=== PATIENT | female | born 1995 | race Caucasian/White ===

== ENCOUNTER 2017-01-22 17:32 | Emergency (ER) | payer BC ==
[2017-01-22] MEDS ORDERED: LIDOCAINE HCL 20 ML UDC PO ONE (18:01)
[2017-01-22] MEDS ORDERED: MAG HYDROX/ALUMINUM HYD/SIMETH 30 ML UDC PO ONE (18:01)
[2017-01-22] MEDS ORDERED: SUCRALFATE 1 G/10 ML UDC PO ONE (18:01)
[2017-01-22] MEDS ORDERED: ONDANSETRON 4 MG TAB.RAPDIS PO ONE (18:01)
[2017-01-22] MEDS ORDERED: NORMAL SALINE 1,000 ML IV ONE (18:01)
[2017-01-22] MEDS ORDERED: ONDANSETRON 4 MG TAB.RAPDIS ONE (18:08)
[2017-01-22 18:11] LABS: Hematocrit 42.1 % (37.0-47.0); Hemoglobin 13.6 gm/dL (12.5-16.0); Mean Cell Volume 83.9 fl (78-100); Mean Corpuscular Hemoglobin 27.1 pg (27-31); Mean Corpuscular Hgb Conc 32.3 g/dl (32-36); Neutrophil # 4.9 K/mm3 (1.3-6.0); Neutrophil % 59.1 % (42-75.0); Platelet Count 352 K/mm3 (150-450); Red Blood Count 5.02 M/mm3 (4.2-5.4); Red Cell Distribution Width 12.8 % (11.5-14.0); White Blood Count 8.3 K/mm3 (4.0-10.5)
--- NOTE | 2017-01-22 18:13 | ERNOTE ---
Medical Problem HPI - Narrative Date of Service: 01/22/17 - General Chief Complaint: Nausea/Vomiting Time Seen by Provider: 01/22/17 17:42 Source: patient Exam Limitations: no limitations - Immun/Allergies/Home Medications Immunizations: IMMUNIZATION HX Immunizations Up to Date Yes History of Influenza Vaccine No Hx Pneumococcal Vaccination No Allergies/Adverse Reactions: Allergies No Known Allergies Allergy (Unverified 01/22/17 17:43) Home Medications: HOME MEDICATIONS Ondansetron [Zofran Odt] 4 mg PO Q6H PRN #20 tab 01/22/17 [Last Taken Unknown] Ranitidine HCl [Zantac] 150 mg PO BID #60 tab 01/22/17 [Last Taken Unknown] Sertraline HCl DAILY 01/22/17 [Last Taken Unknown] metFORMIN HCL [Metformin HCl ER] 1,000 mg PO DAILY 01/22/17 [Last Taken Unknown] - History of Present History Narrative: Pt. comes in with c/o LUQ pain for four days that is accompanied by vomiting that occurs after she eats and is worsened by lying flat and states that she wakes up with a bad taste in her mouth. Pt. went to the [place] [facility] and was started on Zofran and was diagnosed with gastroenteritis and was sent to her PCP. Her PCP today referred her here as she was concerned that pt. may have biliary colic. Pt. states that her symptoms improved after she was in the ER and received a cocktail but states that the symptoms worsened again after the medication wore off. Review of Systems - Review of Systems Constitutional: Present: no symptoms reported. Absent: recent illness, fever, chills, weakness, fatigue, malaise EYE: Present: no symptoms reported ENT: Present: no symptoms reported Respiratory: Present: no symptoms reported. Absent: shortness of breath, cough , wheezing Cardiology: Present: no symptoms reported Gastrointestinal/Abdominal: Present: nausea, vomiting, abdominal pain - LUQ. Absent: diarrhea Genitourinary: Present: no symptoms reported Musculoskeletal: Present: no symptoms reported. Absent: back pain, joint pain Skin: Present: no symptoms reported Neurological: Present: no symptoms reported. Absent: headache, dizziness/light- headedness, numbness, tingling All Other Systems: All systems neg except as marked - Patient's Past Medical History Patient History - Medical: Diabetes Type 2, Other - gastroenteritis Patient History - Cardiac/Respiratory: No pertinent hx Patient History - Cancer: No Hx of Cancer Patient History - Surgical Procedures: T & A Patient History - Other: None LMP (females 10-50): this week - Social History Living Situations: home Psych History: No pertinent hx Smoking Status: Never smoker - Immunizations Immunizations Up to Date: Yes Hx Pneumococcal Vaccination: No History of Influenza Vaccine: No Physical Exam - Physical Exam General Appearance: Present: wd/wn, alert, no apparent distress Head Exam: Present: normal inspection, no evidence of injury Eye Exam: Normal inspection: bilateral, PERRL: bilateral, EOMI: bilateral Ears, Nose, Throat: Present: normal ENT inspection, normal pharynx Neck: Present: normal inspection, nontender. Absent: lymphadenopathy (R), lymphadenopathy (L) Respiratory: Present: no respiratory distress, normal breath sounds, no accessory muscle use, chest nontender, lungs clear Cardiovascular/Chest: Present: regular rate, rhythm, no murmur, normal peripheral pulses Gastrointestinal/Abdominal: Present: normal bowel sounds, nondistended, soft, no organomegaly, tenderness - LUQ Extremity Exam: Present: normal inspection, non-tender Neurological Exam: Present: alert, oriented, normal mood/affect, no motor/ sensory deficits Skin Exam: Present: normal color, warm/dry. Absent: pallor, skin rash ED Progress - Date and Time Seen: Date and Time: 01/22/17 18:50 Pt. significantly improved after medications and tolerating foods and fluids. Feel that pt. has gastritis will have pt start zantac daily. - Results and Orders Patient's Lab Results:: I have reviewed the patient's lab results. Results and Orders: Pt. with contaminated urine - Vital Signs Patient's Vital Signs:: I have reviewed the patient's vital signs. Vital Signs: Vital Signs 01/22/17 01/22/17 17:37 17:52 Temperature 36.6 C Pulse Rate 90 89 Respiratory 17 15 Rate Blood Pressure 134/73 131/111 O2 Sat by Pulse 99 95 Oximetry - Progress/Reassessment Chief Complaint: Nausea/Vomiting Progress:: Improved Departure Clinical Impression: Gastritis Qualifiers: Gastritis type: unspecified gastritis Chronicity: acute Gastritis bleeding: without bleeding Qualified Code(s): K29.00 - Acute gastritis without bleeding - Departure Disposition: Home self-care Condition: Good Instructions: Gastritis, Adult, [id number] Additional Instructions: Please follow up with primary provider in 2-3 days. Prescriptions: Ondansetron [Zofran Odt] 4 mg PO Q6H PRN #20 tab PRN Reason: Nausea Ranitidine HCl [Zantac] 150 mg PO BID #60 tab
[2017-01-22 18:32] LABS: Urine Bilirubin Negative (NEGATIVE); Urine Blood 25 /ul (NEGATIVE); Urine Ketone 5 mg/dL (NEGATIVE); Urine Nitrite Negative (NEGATIVE); Urine Protein Negative (NEGATIVE); Urine Urobilinogen Normal (NORMAL); Urine pH 6.5 pH (5.0-7.0)
[2017-01-22 18:33] LABS: Anion Gap 10.9 mmol/L (6.8-13.8); BUN/Creatinine Ratio 13.9 (9.0-21.6); Bilirubin, Total 0.2 mg/dL (0.0-1.1); Ca. Corrected For Albumin 8.4 mg/dL (8.4-10.2); Calcium * 8.7 mg/dL (7.9-10.9); Carbon Dioxide 27.2 mmol/L (24-32.6); Potassium 4.1 mmol/L (3.4-4.6); Total Protein 8.2 gm/dL (6.2-8.2)
[2017-01-22 18:43] LABS: Urine Appearance Cloudy; Urine Bacteria 2+; Urine Color Yellow; Urine RBC TRACE /hpf (0-5)
[2017-01-22] MEDS ORDERED: ONDANSETRON HCL/PF 2 MG/ML VIAL IV ONE (18:54)
[2017-01-22] MEDS ORDERED: ONDANSETRON HCL/PF 2 MG/ML VIAL ONE (19:05)
[2017-01-22 19:24] VITALS: BP 117/78
== END 2017-01-22 19:30 | disposition home or self-care (01) ==
LOC: ER 17:32
DX: K29.00 Acute gastritis without bleeding (principal); E11.9 Type 2 diabetes mellitus without complications
CPT/HCPCS: 36415; 80053; 81001; 84703; 85025; 87086; 96374; 99284; J2405